=== PATIENT | female | born 1975 | race Caucasian/White ===

== ENCOUNTER 2019-08-29 08:17 | Outpatient (CLI) | payer OTHER ==
--- NOTE | 2019-08-29 16:18 | XRAY Report ---
Reason: KNEE PAIN, RIGHT, M25.561 Procedure Date: 08/29/2019 Accession Number: [id number] / [id number] Procedure: XRS - Knee 3 View RT CPT Code: FULL RESULT: EXAM: RIGHT KNEE RADIOGRAPHY EXAM DATE: 08/29/2019 08:32 AM. CLINICAL HISTORY: Right knee pain. COMPARISON: None. TECHNIQUE: 3 views. FINDINGS: Bones: No acute abnormality or fracture. There is a small osteochondroma arising from the posterior medial distal right femoral cortex; no associated soft tissue calcification. Joints: Normal. No effusion. No subluxations. Soft Tissues: Normal. No soft tissue swelling. IMPRESSION: 1. No acute bony abnormality or joint effusion. 2. There is an incidental small medial distal femoral cortical osteochondroma, which is typically non-symptomatic. If the patient has pain in this region, consider MRI without and with contrast for further evaluation. [facility]
[2019-08-29 17:35] LABS: BASOPHILS # (AUTO) 0.1 10^3/uL (0.0-0.1); BASOPHILS % (AUTO) 1.2 %; EOSINOPHILS # (AUTO) 0.2 10^3/uL (0.0-0.7); HGB - HEMOGLOBIN 14.7 g/dL (12.0-16.0); LYMPHOCYTES # (AUTO) 1.7 10^3/uL (1.5-3.5); LYMPHOCYTES % (AUTO) 32.7 %; MEAN CORPUSCULAR HEMOGLOBIN 29.6 pg (27.0-31.0); MEAN CORPUSCULAR VOLUME 89.9 fL (81.0-99.0); MEAN PLATELET VOLUME 11.1 fL (7.9-10.8); MONOCYTES # (AUTO) 0.4 10^3/uL (0.0-1.0); MONOCYTES % (AUTO) 6.9 %; NEUTROPHILS # (AUTO) 2.8 10^3/uL (1.5-6.6); PLT - PLATELET COUNT 201 10^3/uL (130-450); RED BLOOD COUNT 4.96 10^6/uL (4.20-5.40); RED CELL DISTRIBUTION WIDTH 12.3 % (12.0-15.0)
[2019-08-29 18:04] LABS: ALBUMIN 4.4 g/dL (3.2-5.5); ALBUMIN/GLOBULIN RATIO 1.4 (1.0-2.2); BILIRUBIN,TOTAL 0.9 mg/dL (0.2-1.0); CALCIUM 9.1 mg/dL (8.5-10.3); CREATININE 0.9 mg/dL (0.4-1.0); TOTAL PROTEIN 7.6 g/dL (6.7-8.2)
[2019-08-29 18:28] LABS: FOLATE 16.46 ng/mL (5.90 - >24.8)
[2019-08-30 17:56] LABS: HIV AG/AB 4TH GEN NON-REACTIVE (NON-REACTIVE)
[2019-08-31 08:18] LABS: TRICHOMONAS VAGINALIS DNA NEGATIVE (NEGATIVE)
== END 2019-08-29 08:18 | disposition home or self-care (01) ==
LOC: DI.S 08:17
PROVIDERS: ATTEND Registered Nurse
DX: Z00.00 Encounter for general adult medical examination without abnormal findings (principal); M25.561 Pain in right knee; D16.21 Benign neoplasm of long bones of right lower limb
CPT/HCPCS: 36415; 80053; 82746; 84443; 85025; 87081; 87389; 87491; 87591; 87661

== ENCOUNTER 2019-10-16 09:59 | Outpatient (CLI) | payer OTHER ==
--- NOTE | 2019-10-16 14:19 | MRI Report ---
Reason: RT KNEE PAIN, INSTABILITY Procedure Date: 10/16/2019 Accession Number: [id number] / [id number] Procedure: MRI - Knee RT W/O CPT Code: Final Report FULL RESULT: EXAM: RIGHT KNEE MRI WITHOUT CONTRAST EXAM DATE: 10/16/2019 10:49 AM. CLINICAL HISTORY: Right knee pain, instability. COMPARISON: KNEE 3 VIEW RT 08/29/2019 8:45 AM. TECHNIQUE: Multiplanar, multisequence T1-weighted and fluid-sensitive sequences of the knee without contrast. Other: None. FINDINGS: Bones: Marrow edema posterior aspect medial tibial plateau. Probable remote healing fracture posterior aspect medial tibial plateau. Articular Cartilage: Severe focal chondromalacia patellar apex. Medial Meniscus: The medial meniscus is intact. Lateral Meniscus: Complex tear anterior horn lateral meniscus. Associated with the complex tear anterior horn lateral meniscus is a parameniscal cyst 6 mm x 3.6 mm x 9.2 mm (image 10 series 501). Cruciate Ligaments: Complete tear anterior cruciate ligament. Normal thickness and low signal posterior cruciate ligament. Collateral Ligaments: The medial collateral and lateral collateral ligamentous structures are intact. Tendons: The quadriceps, patellar, semimembranosus, and popliteus tendons are unremarkable. Musculature: No edema or fatty atrophy. Other: Small fluid collection patellar recesses. No popliteal cyst. No loose bodies. The medial and lateral retinacula are intact. The subcutaneous tissues and fat pads are unremarkable. IMPRESSION: 1. Complex tear anterior horn lateral meniscus associated with parameniscal cyst. 2. Complete tear anterior cruciate ligament. 3. Healing nondisplaced fracture posterior aspect medial tibial plateau. 4. Severe focal chondromalacia patellar apex. [facility]
== END 2019-10-16 10:00 | disposition home or self-care (01) ==
LOC: DI 09:59
PROVIDERS: ATTEND Orthopaedic Surgery Sports Medicine
DX: S83.231A Complex tear of medial meniscus, current injury, right knee, initial encounter (principal); S83.511A Sprain of anterior cruciate ligament of right knee, initial encounter; S82.144D Nondisplaced bicondylar fracture of right tibia, subsequent encounter for closed fracture with routine healing; M22.41 Chondromalacia patellae, right knee

== ENCOUNTER 2019-12-05 09:29 | Day surgery (SDC) | payer OTHER ==
[~2019-12-05 09:29] MED LIST: CEFAZOLIN SODIUM IN 0.9 % NACL 2 GM/100 ML BAG IV ONE
[2019-12-05] MEDS ORDERED: KETOROLAC 30 MG/ML VIAL IVP ONE (09:30)
[2019-12-05] MEDS ORDERED: ACETAMINOPHEN 1,000 MG/100 ML 100 ML IV ONE (09:30)
[2019-12-05] MEDS ORDERED: HYDROmorphone 1 MG/ML SYRINGE IVP ONE (09:30)
[2019-12-05] MEDS ORDERED: PROPOFOL 200 MG/20 ML VIAL IVP ONE (09:30)
[2019-12-05] MEDS ORDERED: MIDAZOLAM 2 MG/2 ML VIAL IVP ONE (09:30)
[2019-12-05] MEDS ORDERED: ROPIVACAINE 0.5% PF 20 ML AMPULE ONE (09:50)
[2019-12-05] MEDS ORDERED: LACTATED RINGERS 1,000 ML IV ONE ×2 (09:51→12:46)
[2019-12-05 09:54] LABS: HCG UR QUAL NEGATIVE
--- NOTE | 2019-12-05 10:20 | ANESTHESIA ---
Pre-Anesthesia VS, & Labs - Diagnosis R knee grade 2 ACL sprain. lateral meniscus tear - Procedure R AACL, hamstring autograft, partial lateral menisectomy Vital Signs: Temp Pulse Resp BP Pulse Ox 36.4 C L 72 16 130/82 H 99 12/05/19 09:39 12/05/19 09:39 12/05/19 09:39 12/05/19 09:39 12/05/19 09:39 Height 5 ft 4 in Weight (kg) 64.8 kg - NPO Last Fluid Intake: 4oz black coffee at 0800 - Is Patient ?: No - Lab Results Lab results reviewed: Yes Home Medications and Allergies Home Medications: Ambulatory Orders No Known Home Medications 11/29/19 No Known Home Medications 11/29/19 Allergies/Adverse Reactions: Allergies Allergy/AdvReac Type Severity Reaction Status Date / Time No Known Drug Allergies Allergy Verified 11/29/19 09:43 Anes History & Medical History - Anesthetic History Anesthesia Complications: reports: No previous complications Family history of Anesthesia Complications: Denies Family history of Malignant Hyperthermia: Denies - Medical History Cardiovascular: reports: None Pulmonary: reports: None Gastrointestinal: reports: None Urinary: reports: None Musculoskeletal: reports: Other Endocrine/Autoimmune: reports: None Skin: reports: None Exam General: Alert, Oriented x3, Cooperative Dental: WNL Mouth Openin Fingerbreadth Neck Mobility: Normal Mallampati classification: II Thyromental Distance: greater than 6 cm Respiratory: Lungs clear, Normal breath sounds, No respiratory distress Cardiovascular: Regular rate Neurological: Normal speech Mental/Cognitive Status: Alert/Oriented X3, Normal for patient Cognitive Status: Within normal limits Plan Anesthesia Type: General, Femoral Block Regional Block: Per Surgeon's request for Post Op pain control Consent for Procedure(s) Verified and Reviewed: Yes Code Status: Attempt Resuscitation ASA classification: 2-Mild systemic disease Is this case an emergency?: No
[2019-12-05] MEDS ORDERED: BUPIVACAINE 0.25% PF 30 ML VIAL ONE (10:33)
[2019-12-05] MEDS ORDERED: LIDOCAINE 1%-EPI 1:100000 20 ML MDV ONE (10:34)
[2019-12-05] MEDS ORDERED: EPINEPHrine 1 MG/ML AMP ONE (10:34)
[2019-12-05] MEDS ORDERED: BUPIVACAINE 0.25% PF 30 ML VIAL SUBQ ONE (11:40)
[2019-12-05] MEDS ORDERED: EPINEPHrine 1 MG/ML AMP IR ONE (11:40)
--- NOTE | 2019-12-05 11:43 | ANESTHESIA PROCEDURE NOTE ---
Diagnosis: Right knee ACL Tear Procedure: Right Femoral nerve block Consent for Procedure(s) Verified and Reviewed: Yes Height and Weight: Height 5 ft 4 in Weight (kg) 64.8 kg Vital Signs: Temp Pulse Resp BP Pulse Ox 36.4 C L 72 16 130/82 H 99 12/05/19 09:39 12/05/19 09:39 12/05/19 09:39 12/05/19 09:39 12/05/19 09:39 Allergies No Known Drug Allergies Allergy (Verified 11/29/19 09:43) Requesting Provider: Donna ASA classification: 2-Mild systemic disease Is this case an emergency?: No Anes. Monitoring and Equipment: Non-invasive BP, Pulse oximetery Procedure Notes: After induction of general anesthesia, the right groin area was prepped with chlorohexadine. After timeout, the right femoral nerve was identified under ultrasound. A 22G blunted stimiplex needle was advanced towards the right femoral nerve bundle. A total of 30ml ropivicaine plus 4mg decadron was injected with adequate spread noted. Full evaluation pending.
[2019-12-05] MEDS: fentaNYL 100 MCG/2 ML VIAL ONE ×2 (13:22→13:37)
[2019-12-05] MEDS ORDERED: ONDANSETRON 4 MG/2 ML VIAL IVP PRN (13:23)
[2019-12-05] MEDS ORDERED: oxyCODONE 5 MG TABLET PO PRN (13:23)
--- NOTE | 2019-12-05 13:30 | IMMEDIATE POSTOPERATIVE NOTE ---
Immediate Postoperative Note - Procedure Note Procedure Date: 12/05/19 Pre-Op Diagnosis: Right knee grade 3 ACL sprain, lateral meniscus tear Procedure: Right knee arthroscopically assisted ACL reconstruction with hamstring autograft Post-Op Diagnosis: Right knee grade 3 ACL sprain, lateral meniscal scuffing Primary Surgeon: Kassy GUILLORY Internal Medicine Physician: None Anesthesia Type: General LMA, Local, Regional block Findings: 3 ACL sprain, minimal chondromalacia all compartments grade 1-2. Stable lateral meniscus no jose tearing there was surface scuffing. Estimated Blood Loss (in cc): 50 Drains, Catheters, Devices: none Specimens and Cultures: none Plan of Care: Patient tolerated procedure well instrument and sponge counts correct. Patient transferred recovery room in stable condition. She will follow standard postoperative right knee ACL reconstruction protocol.
[2019-12-05] MEDS ORDERED: oxyCODONE 5 MG TABLET ONE (14:06)
[2019-12-05] MEDS ORDERED: ONDANSETRON 4 MG/2 ML VIAL ONE (14:19)
[2019-12-05 14:32] VITALS: BP 116/73
--- NOTE | 2019-12-07 11:43 | OPERATIVE REPORT ---
DATE OF SERVICE: 12/05/2019 Physician: Maynor Thompson MD SURGEON: Maynor Thompson MD SOFTWARE ASSET MANAGER: None. ANESTHESIOLOGIST: Momo Guzman CRNA ANESTHESIA TYPE: Right side femoral block under ultrasound guidance by anesthesia team, as well as g eneral LMA, as well as 12 mL of 0.25% Marcaine plain. TOURNIQUET TIME: 84 minutes at 250 mmHg. PREOPERATIVE ANTIBIOTICS: Two grams weight-based IV Ancef. COMPRESSION DEVICE: Contralateral left calf SCD boot. ORTHOPEDIC IMPLANTS: 1. Arthrex 10 x 30 BioComposite interference screw. 2. Arthrex ACL TightRope device. INTRAOPERATIVE COMPLICATIONS: None noted. INTRAOPERATIVE FINDINGS: The patient was noted to have unstable ACL exam with anterior drawer, Lachm an testing and positive pivot-shift testing pre procedure. Post procedure and fixation, these tests w ere negative. She has full range of motion post procedure. Intraoperative examination of the ACL with femoral fixation notes good lateral and anterior superior clearance and excellent isometry with minimal movement at terminal degrees of extension. Intra-articular exam showed suprapatellar pouch, medial and lateral gutters clear. Medial meniscus i ntact. Lateral meniscus showed some scuffing of the superior aspect of the anterior horn with no dis tinct tearing complex or otherwise. This is probed thoroughly and noted to show no tearing and no in stability noted. As such, no anterolateral partial lateral meniscectomy performed. Remaining joint shows chondromalacia grade 1-2, less than 10-20% of each joint. ACL shows grade 3 sprain, PCL okay. HISTORY OF PRESENT ILLNESS: The patient is a 44-year-old female with unstable right knee with sympto matic instability. She was indicated for operative treatment. Please see previous clinic discussion of further details regarding risks, benefits, alternatives of operative and nonoperative treatment. These were again highlighted with the patient and the patient's in the preoperative area. T heir questions were answered. They verbalized understanding above, the patient verbalized wish to co ntinue with plans for operative intervention. PROCEDURE DETAILS: On 12/05/2019, patient was identified in the preoperative care unit. She identif ies her right knee as the operative site and this is signed. She received preoperative weight-based IV antibiotics and brought to the operating room. General anesthesia and regional anesthesia was adm inistered by anesthesia team after site identification pause. After that, the patient was placed in supine position, comfortable to protect head, neck and extremities. The patient's right lower extrem ity had a well-padded tourniquet placed high on the right thigh, taking care to avoid encumbrance of the genitalia. At this point, patient's right knee and right lower extremity are pre-scrubbed with H ibiclens solution, then washed with alcohol, allowed to dry and then prepped and draped using ChloraP rep solution. At this point, the site identification pause was performed and the right knee was iden tified as the operative site. At this point, local anesthesia was infused superficially around the t ibial incision as well as the planned arthroscopy incisions. At this point, Esmarch bandage was used to exsanguinate the limb. Tourniquet is inflated, and then a fter palpating the hamstrings, an incision was made over the hamstring insertion. Hamstring was then harvested to maximal length gracilis and semitendinosus by elevating the sartorial fascia and then di viding the fibrotic bands and then using a tendon stripper to achieve this. This is brought to the b ack table and prepared by removing muscular and fatty tissue and then whip stitching #2 FiberWire in each end, draping this over an ACL TightRope device. This is set aside in a moist Ray-[place]. At this point, diagnostic arthroscopy was carried out. A small incision was made anterolaterally. S cope was introduced into the notch, then into the suprapatellar pouch. Fluid is infused. Outflow po rtal was created superomedially. A probe was introduced anteromedially and at this point, the joint was reexamined and some fatty tissue was debrided over the anterior horn lateral meniscus with a jack moultongh examination there. This was then thoroughly probed and noted to show no indication for meniscec rafael on either meniscus. At this point, attention was directed to bending the knee to 90 degrees. K nee was flexed to 90 degrees and the ACL residual is debrided. Then, a combination of shaver, curette and bur to get to the [id number] position with a notchplasty. At this point, guide set to approxi mately 57-1/2 degrees based on anatomy was brought to the ACL footprint on the tibia and then with ap propriate angle, the guide pin is brought to the ACL footprint approximately 6 mm anterior to the PCL level at the posterior aspect of the anterior horn of the lateral meniscus. Pin was brought and then the 8-mm filed reamer is used. The entrance and exit are debrided. Bony debris is evacuated, and t hen the [id number] guide was brought to the 10:30 position with plan for 1-mm back wall. This was then confirmed, followed by seating of the acorn reamer to approximately a depth of 25 mm. Bony debr is was evacuated. At this point, using the guide pin, the ACL TightRope is delivered up into the kne e past the second cortex, allowed to toggle and catch on the second cortex. The graft was tensioned and then the graft was toggled into place so that it seats at 25 mm. Isometry was tested. Please see operative findings. At this point, with the knee flexed approximately 20 degrees, posterior drawer is administered, all f our graft limbs were pulled taut and then all guidewires brought between them, followed by placement of the interference screw with excellent compression fixation. This is noted to be just flush with t he anterior cortex of the tibia, so there remained significant purchase there. At this point, the kn ee was re-examined and showed negative ACL exam with physical exam, though intra-articular exam shows an appropriately taut ACL, which was probed and noted to be in appropriate position. At this point, the knee joint was re-examined and noted to be free of loose debris, copiously irrigated and hemosta sis achieved, and then the tibial incision was closed after sartorial fascia was copiously irrigated and closed using 0 Vicryl. Then the skin was closed with 0 Vicryl, 2-0 Vicryl, and subcuticular Prol campos suture, followed by Steri-Strips. The arthroscopic incisions and the lateral superior small punc franco incision were closed using interrupted nylon suture. Skin is washed and dried. Remainder of th e local was provided superficially. Xeroform dressing applied. Dry sterile dressings applied, ABD p ad, Sof-Rol, Thiago wrap and then patient was placed into a hinged long knee brace locked in extension. The patient tolerated the procedure well. Instrument and sponge counts were correct. The patient wa s transferred to recovery room in stable condition and will follow standard postoperative ACL protoco l. The patient's contacted the waiting room, case was discussed, arthroscopic photos reviewed. He verbalized understanding and satisfaction with plan as outlined. The patient will be on periopera tive antibiotics, perioperative DVT prophylaxis with aspirin twice daily, full size, as well as analg esic medication, narcotics and bowel regimen as necessary. She previously denied any contraindicatio n to medications prescribed and will use them as directed. She will notify us prior to followup visit should problems, questions or worsening condition arise. TD: 12/07/2019 10:38
== END 2019-12-05 09:30 | disposition home or self-care (01) ==
LOC: SDS 09:29
PROVIDERS: ATTEND Orthopaedic Surgery Sports Medicine
PROC: 0LBL0ZZ Excision of Right Upper Leg Tendon, Open Approach (ICD-10-PCS; 2019-12-05)
PROC: 0MRN47Z Replacement of Right Knee Bursa and Ligament with Autologous Tissue Substitute, Percutaneous Endoscopic Approach (ICD-10-PCS; principal; 2019-12-05 11:00)
DX: S83.511A Sprain of anterior cruciate ligament of right knee, initial encounter (principal); M94.261 Chondromalacia, right knee
CPT/HCPCS: 81025

== ENCOUNTER 2020-09-01 11:01 | Outpatient (CLI) | payer OTHER ==
--- NOTE | 2020-09-01 11:46 | XRAY Report ---
PROCEDURE: Knee 3 View BILAT INDICATIONS: KNEE JOING-ANTEROPOSTERIOR INSTABILITY TECHNIQUE: 3 views of the bilateral knee(s) were acquired, 6 views total. COMPARISON: 08/29/2019 right knee. FINDINGS: Bones: No fractures or dislocations. No suspicious bony lesions. Note is made of prior ACL repair right knee. Mild joint space narrowing present at each knee indicating presence of mild osteoarthriti s. Soft tissues: No joint effusion. No suspicious soft tissue calcifications. IMPRESSION: Prior right knee ACL repair. Bilateral symmetric knee joint mild osteoarthritis. No effu antonia or loose body found. Reviewed by: Radhames Chavez MD on 09/01/2020 11:45 AM PDT Approved by: Radhames Chavez MD on 09/01/2020 11:45 AM PDT Station ID: [id number]
== END 2020-09-01 11:02 | disposition home or self-care (01) ==
LOC: DI 11:01
PROVIDERS: ATTEND Physician Assistant
DX: M23.8X9 Other internal derangements of unspecified knee (principal); M17.0 Bilateral primary osteoarthritis of knee